=== PATIENT | male | born 1970 | race African-American/Black ===

== ENCOUNTER 2016-08-11 09:32 | Emergency (ER) | payer MEDICARE, MEDICAID ==
[~2016-08-11] VITALS: Ht 188 cm; Wt 78.0 kg
[~2016-08-11 09:32] MED LIST: BACTRIM DS TAB1 EAC1 ORAL; CIPRO500 MG PO; FAMOTIDINE20 MG ORAL; HYDROCODON-ACE1 EA15 ORAL; HYDROCORTISONE-30 GM TOPIC; LEVAQUIN500 MG ORAL; MEDROL DOSEPAK4 MG ORAL; METRONIDAZOLE500 MG ORAL; NEXIUM20 MG ORAL; NITROSTAT0.4 M2 SL; NORCO1 E1 ORAL; PROAIR HFA8.5 GM INH; RANITIDINE HCL150 MG ORAL; SOMA350 MG PO; XANAX2 MG ORAL
[2016-08-11 09:52] VITALS: BP 144/81
[2016-08-11] MEDS ORDERED: PredniSONE 20mg tab ORAL ONE (10:00)
[2016-08-11] MEDS ORDERED: RANITIDINE HCL150 MG ORAL (10:03)
[2016-08-11] MEDS ORDERED: DIPHENHYDRAMINE25 M1 ORAL (10:03)
[2016-08-11] MEDS ORDERED: PREDNISONE20 MG ORAL (10:03)
[2016-08-11 10:10] VITALS: BP 144/81
--- NOTE | 2016-08-12 07:41 | Emergency Room Report ---
History of Present Illness General Chief Complaint: Skin Rash/Abscess Source: Patient Present Illness HPI 45-year-old male presents ED complaining of rash. States symptoms started last night. Notes rash to legs, abdomen and arms. itchy in nature. Patient denies any known food allergies, states he is allergic to penicillin. Denies any fevers chills. Denies sick contacts or recent travel. Denies any new soaps or detergent. No other aggravating or relieving factors. Denies any other associated symptoms Allergies: Coded Allergies: PENICILLINS (Unverified Allergy, Unknown, 01/01/14) Patient History Past Medical History: HTN, asthma Past Surgical History: other - pancreatitis Pertinent Family History: none Social History: Denies: alcohol use, drug use, smoking Immunizations: UTD Reviewed Nursing Documentation: PMH: Agreed, PSxH: Agreed Nursing Documentation-PMH Past Medical History: No History, Except For Hx Cardiac Problems: Yes - blocked artery Hx Hypertension: Yes Hx Asthma: Yes Hx Cancer: No Hx Gastrointestinal Problems: Yes - pancreatitis/surgery 1999 Hx Neurological Problems: No Review of Systems All Other Systems: negative except mentioned in HPI Physical Exam Vital Signs Date Time Temp Pulse Resp B/P Pulse Ox O2 Delivery O2 Flow Rate FiO2 08/11/16 09:46 98.1 98 18 144/81 99 Room Air Sp02 EP Interpretation: reviewed, normal General Appearance: no apparent distress, alert, GCS 15, non-toxic Head: normocephalic Eyes: bilateral eye PERRL, bilateral eye normal inspection ENT: normal ENT inspection Neck: normal inspection Respiratory: normal inspection Cardiovascular #1: normal inspection Gastrointestinal: normal inspection Rectal: deferred Genitourinary: no CVA tenderness Musculoskeletal: normal inspection Neurologic: alert, oriented x3, responsive, motor strength/tone normal, sensory intact, speech normal Psychiatric: normal inspection Skin: rash - urticarial rash noted to legs, trunk, arms Lymphatic: normal inspection Medical Decision Making Diagnostic Impression: Primary Impression: Rash and other nonspecific skin eruption ER Course Hospital Course 45-year-old male presents to ED with rash Differential diagnoses include: allergic reaction, cellulitis, dermatitis Clinical course Patient placed on stretcher. potline monitor. After initial history, physical exam reveals a middle-age male in no acute distress. There is urticarial rash noted to the arms, legs, abdomen. blanching. Nonerythematous base. I ordered prednisone, zantac, benedryl i. I feel this is a highly complex case requiring extensive working including EKG/Rhythm strip, Xray/CT/US, Blood/urine lab work, repeat exams while in ED, and administration of strong opiates/narcotics for pain control, admission to hospital or close patient follow up. Diagnosis - rash Stable and discharged to home with prescriptions for Zantac, prednisone, Benadryl. Followup with PMD. Return to ED if symptoms recur or worsen Last Vital Signs Date Time Temp Pulse Resp B/P Pulse Ox O2 Delivery O2 Flow Rate FiO2 08/11/16 10:10 98.1 98 18 144/81 99 Room Air Status: improved Disposition: HOME, SELF-CARE Condition: Stable Scripts Ranitidine Hcl* (ZANTAC*) 150 Mg Tablet 150 MG ORAL TWICE A DAY, #30 TAB Prov: MOHIT ROSS M.D. 08/11/16 Diphenhydramine Hcl* (DIPHENHYDRAMINE HCL*) 25 Mg Capsule 25 MG ORAL Q6H Y for Itching, #30 CAP 0 Refills Prov: MOHIT ROSS M.D. 08/11/16 Prednisone* (PREDNISONE*) 20 Mg Tablet 40 MG ORAL DAILY, #10 TAB Prov: MOHIT ROSS M.D. 08/11/16 Referrals: [employer] [facility],REFERRIN (PCP) Patient Instructions: MOHIT Toledo M.D. Aug 12, 2016 07:41
== END 2016-08-11 10:10 | disposition home or self-care (01) ==
LOC: EMR 09:56
DX: R21 Rash and other nonspecific skin eruption (principal); J45.909 Unspecified asthma, uncomplicated; I10 Essential (primary) hypertension; Z88.0 Allergy status to penicillin
CPT/HCPCS: 99284

== ENCOUNTER 2018-06-23 10:40 | Emergency (ER) | payer MEDICAID ==
[~2018-06-23] VITALS: Ht 188 cm; Wt 81.6 kg
[~2018-06-23 10:40] MED LIST changes: +DIPHENHYDRAMINE25 M1 ORAL; +PREDNISONE20 MG ORAL
--- NOTE | 2018-06-23 10:49 | NUR ---
ED Nurse Note: Pt is not in the waiting room at this time.
[2018-06-23] MEDS ORDERED: QUETIAPINE FUM200 MG ORAL (11:00)
[2018-06-23] MEDS ORDERED: Dicyclomine HCl 10mg/5ml oral soln ORAL ONE (11:15)
[2018-06-23 11:21] LABS: BILIRUBIN, URINE NEGATIVE (NEGATIVE); GLUCOSE, URINE (UA) NEGATIVE (NEGATIVE); KETONES,URINE 4+ (NEGATIVE); LEUKOCYTE ESTERASE ,URINE 1+ (NEGATIVE); NITRITE,URINE NEGATIVE (NEGATIVE); PH,URINE 6 (4.5-8.0); PROTEIN,URINE 1+ (NEGATIVE); UROBILINOGEN,URINE 1 MG/DL (0.0-1.0)
[2018-06-23 11:23] VITALS: BP 156/87
[2018-06-23 11:23] LABS: APPEARANCE,URINE SLIGHTLY CLOUDY; COLOR,URINE YELLOW
--- NOTE | 2018-06-23 11:30 | NUR ---
ED Nurse Note:blood and urine sent to labs, pt. received IV meds and fluids
[2018-06-23 11:46] LABS: BASOPHILS % (AUTO) 1.5 % (0.0-2.0); EOSINOPHILS % (AUTO) 0.1 % (0.0-3.0); HEMATOCRIT 45.1 % (42.0-52.0); HEMOGLOBIN 15.8 G/DL (14.2-18.0); LYMPHOCYTES % (AUTO) 17.6 % (20.0-45.0); MEAN CORPUSCULAR VOLUME 99 FL (80-99); MONOCYTES % (AUTO) 5.3 % (1.0-10.0); NEUTROPHILS % (AUTO) 75.5 % (45.0-75.0); PLATELET COUNT 307 K/UL (150-450); RED BLOOD COUNT 4.57 M/UL (4.70-6.10); RED CELL DISTRIBUTION WIDTH 11.9 % (11.6-14.8); WHITE BLOOD COUNT 8.8 K/UL (4.8-10.8)
[2018-06-23 11:58] LABS: ANION GAP 9 mmol/L (5-15); BLOOD UREA NITROGEN 10 mg/dL (7-18); CALCIUM 8.7 MG/DL (8.5-10.1); CARBON DIOXIDE 29 MMOL/L (21-32); CHLORIDE 103 MMOL/L (98-107); CREATININE 1.1 MG/DL (0.55-1.30); POTASSIUM 4.1 MMOL/L (3.5-5.1); SODIUM 140 MMOL/L (136-145)
[2018-06-23 12:02] LABS: ALANINE AMINOTRANSFERASE 30 U/L (12-78); ALBUMIN 4.1 G/DL (3.4-5.0); ALBUMIN/GLOBULIN RATIO 1.2 (1.0-2.7); ALKALINE PHOSPHATASE 86 U/L (46-116); ASPARTATE AMINO TRANSFERASE 25 U/L (15-37); BILIRUBIN,TOTAL 0.5 MG/DL (0.2-1.0)
--- NOTE | 2018-06-23 12:14 | Diagnostic Imaging Report ---
Indication: Abdominal pain Technique: Continuous helical transaxial imaging of the abdomen and pelvis was obtained from the lung bases to the pubic symphysis. No intravenous contrast was administered. Coronal 2-D reformats were also obtained. Automatic Exposure Control was utilized. Total Dose length Product (DLP): 649.[address] Dose Index Volume (CTDIvol): 12.54 mGy Comparison: 07/13/[address] abdomen pelvis Findings: No nephrolithiasis or hydronephrosis demonstrated. The appendix is normal. No free fluid identified. Few diverticula noted within the colon. There is no evidence of bowel obstruction. Mural arterial calcifications are present. Cholecystectomy noted. Lung bases appear clear. IMPRESSION: No acute findings. Atherosclerotic vascular disease Normal appendix Status post cholecystectomy Diverticulosis of the colon. The CT scanner at [facility] is accredited by the [employer] and the scans are performed using dose optimization techniques as appropriate to a performed exam including Automatic Exposure control.
--- NOTE | 2018-06-23 12:51 | Emergency Room Report ---
History of Present Illness General Chief Complaint: Abdominal Pain Source: Patient Present Illness HPI 47-year-old male with a history of remote cholecystectomy, hypertension, tobacco use presents with umbilical abdominal pain for many weeks, he reports he went to an outside hospital and he was told he had a hernia, he does report some diarrhea but no recent antibiotic use no vomiting, no chest pain, no nausea no fevers, no rectal bleeding or melanotic stools. Patient her symptoms , which is concerned that maybe he has a hernia. Allergies: Coded Allergies: PENICILLINS (Unverified Allergy, Unknown, 01/01/14) Patient History Past Medical History: see triage record Reviewed Nursing Documentation: PMH: Agreed; PSxH: Agreed Nursing Documentation-PMH Past Medical History: No History, Except For Hx Cardiac Problems: Yes - blocked artery Hx Hypertension: Yes Hx Asthma: Yes Hx Cancer: No Hx Gastrointestinal Problems: Yes - pancreatitis/surgery 1999 Hx Neurological Problems: No Review of Systems All Other Systems: negative except mentioned in HPI Physical Exam Vital Signs Date Time Temp Pulse Resp B/P (MAP) Pulse Ox O2 Delivery O2 Flow Rate FiO2 06/23/18 10:55 98.6 98 18 161/92 99 Room Air Sp02 EP Interpretation: reviewed, normal General Appearance: no apparent distress, alert, non-toxic Head: normocephalic Eyes: bilateral eye normal inspection, bilateral eye PERRL, bilateral eye EOMI ENT: normal ENT inspection, hearing grossly normal, normal pharynx, no angioedema, normal voice, moist mucus membranes Neck: normal inspection, full range of motion, supple, supple/symm/no masses Respiratory: chest non-tender, lungs clear, normal breath sounds, chest symmetrical, palpation of chest normal Cardiovascular #1: normal peripheral pulses, regular rate, rhythm Cardiovascular #2: 2+ radial (R), 2+ radial (L) Gastrointestinal: normal inspection, non tender, soft, no mass, non-distended, no guarding, no rebound Rectal: deferred Genitourinary: normal inspection, no CVA tenderness Musculoskeletal: back normal, gait/station normal, normal range of motion, non- tender, no calf tenderness Neurologic: alert, responsive, closing coordinator III-XII nml as tested, motor strength/tone normal, sensory intact, speech normal Psychiatric: judgement/insight normal, memory normal, mood/affect normal, no suicidal/homicidal ideation Skin: normal color, no rash, warm/dry, normal turgor Lymphatic: no adenopathy Medical Decision Making Diagnostic Impression: Primary Impression: Abdominal pain ER Course Patient with no obvious hernia, did report some diarrhea prior to arrival for the last few days off and on, recommended [id number] anti-diarrheal medication as well as Bentyl and Pepcid, suspect possible gastritis, no other serious etiology suspected, patient not been on recent antibiotics, is not having active for persistent diarrhea here, CT scan unremarkable as well, no palpable umbilical or other ventral hernia notable, we'll discharge, patient given 1 L of normal saline, urinalysis did reveal evidence of mild dehydration, but patient clinically very well-appearing. Last Vital Signs Date Time Temp Pulse Resp B/P (MAP) Pulse Ox O2 Delivery O2 Flow Rate FiO2 06/23/18 11:23 98.6 73 18 156/87 99 Room Air Disposition: HOME, SELF-CARE Condition: Stable Referrals: NON PHYSICIAN (PCP) ROCIO TOMLINSON M.D Jun 23, 2018 12:51
[2018-06-23] MEDS ORDERED: PEPCID AC20 M2 PO (12:53)
[2018-06-23] MEDS ORDERED: DICYCLOMINE HCL10 MG PO (12:53)
[2018-06-23 12:55] VITALS: BP 132/75
--- NOTE | 2018-06-23 12:55 | NUR ---
ED Nurse Note: Patient is medically ceared to leave the ED. Patient is alert and oriented x4, ambulatory with a steady gait, VSS, patient acknowledges the need to follow up with PMD within a week if symptoms dont improve, prescriptions given to patient, all belongings sent home. ID band and IV line removed.
== END 2018-06-23 12:55 | disposition home or self-care (01) ==
LOC: EMR 11:36
DX: R10.9 Unspecified abdominal pain (principal); R19.7 Diarrhea, unspecified; I10 Essential (primary) hypertension; J45.909 Unspecified asthma, uncomplicated; Z88.0 Allergy status to penicillin; Z90.49 Acquired absence of other specified parts of digestive tract
CPT/HCPCS: 36415; 74176; 80053; 81003; 83690; 85025; 96361; 96374; 99284; J2405

== ENCOUNTER 2019-03-03 12:38 | Emergency (ER) | payer MEDICARE, MEDICAID ==
[~2019-03-03] VITALS: Ht 188 cm; Wt 79.8 kg
[~2019-03-03 12:38] MED LIST changes: +DICYCLOMINE HCL10 MG PO; +PEPCID AC20 M2 PO; +QUETIAPINE FUM200 MG ORAL
--- NOTE | 2019-03-03 12:50 | NUR ---
ED Nurse Note: PT WALKED IN TO ER TODAY FROM HOME. AOX4. PT C/O ANTERIOR, LEFT-SIDED HEADACHE X 1 WEEK AGO. PT DENIES NAUSEA, VOMITING OR DIZZINESS. GAIT STEADY. PT STATES HE TOOK ALEVE AT HOME LAST NIGHT BUT WITHOUT RELIEF.
[2019-03-03 12:52] VITALS: BP 136/84
[2019-03-03] MEDS ORDERED: Tylenol #3 tab (300mg/30mg) ORAL ONE (13:00)
--- NOTE | 2019-03-03 13:07 | NUR ---
ED Nurse Note: PT REFUSED BLOOD DRAW, MEDICATIONS, AND FLUIDS. PT STATES, "I DON'T NEED ALL THAT. I JUST WANT MY HEAD SCAN." CLIFF SMITH NOTIFIED.
--- NOTE | 2019-03-03 13:13 | NUR ---
ED Nurse Note: PT TO CT VIA WHEELCHAIR.
--- NOTE | 2019-03-03 13:27 | NUR ---
ED Nurse Note: PT BACK FROM CT VIA SOM.
--- NOTE | 2019-03-03 15:57 | NUR ---
ED Nurse Note: PT YELLING, "I'VE BEEN WAITING FOREVER AND YOU GUYS HAVEN'T DONE A FUCKING THING. I'VE BEEN HERE FOR 5 HOURS AND Y'ALL AIN'T DO SHIT!" MULTIPLE ATTEMPTS MADE TO EXPLAIN TO PT THAT WE ARE STILL AWATING RESULTS OF HEAD CT AND THAT WE HAVE NO CONTROL OVER HOW QUICKLY THE REPORT IS GENERATED. PT IN [place]AY CONTINUALLY CURSING IN ANGER, "JWUAN GET THE FUCK OUT THIS [facility] AND GO TO [facility] OR [facility]!" ATTEMPTS MADE AGAIN BY MULTIPLE STAFF TO CALM PT BUT PT STATES, "JUWAN GET THE FUCK OUT THIS STUPID PLACE!" PA AND RN AT BEDSIDE EXPLAINING RISKS AND CONSEQUENCES OF LEAVING THE HOSPITAL AT THIS TIME AND THE BENEFITS OF CONTINUED TREATMENT AND HOSPITALIZATION. PT REFUSES TO WAIT ANY LONGER. PT SIGNED AMA FORM WITNESSED BY PRIMARY RN AND WALKED OUT OF ER WITH STEADY GAIT AND ALL BELONGINGS ACCOMPANIED BY FRIEND.
--- NOTE | 2019-03-03 15:58 | NUR ---
Note sharon in EDM - 03/03/19 at 1603 by [facility] ED Nurse Note: PT YELLING, "I'VE BEEN WAITING FOREVER AND YOU GUYS HAVEN'T DONE A FUCKING THING. I'VE BEEN HERE FOR 5 HOURS AND Y'ALL AIN'T DO SHIT!" MULTIPLE ATTEMPTS MADE TO EXPLAIN TO PT THAT WE ARE STILL AWATING RESULTS OF HEAD CT AND THAT WE HAVE NO CONTROL OVER HOW QUICKLY THE REPORT IS GENERATED. PT IN [facility] CONTINUALLY CURSING IN ANGER, "JUWAN GET THE FUCK OUT THIS [facility] AND GO TO [facility] OR [facility]!" ATTEMPTS MADE AGAIN BY MULTIPLE STAFF TO CALM PT BUT PT STATES, "JUWAN GET THE FUCK OUT THIS STUPID PLACE!" PT SIGNED AMA AND WALKED OUT OF ER WITH STEADY GAIT AND ALL BELONGINGS ACCOMPANIED BY FRIEND.
--- NOTE | 2019-03-03 16:00 | Diagnostic Imaging Report ---
Indications: Severe headache Technique: Spiral acquisitions obtained through the brain. Angled axial and coronal 5 x 5 mm slices were reconstructed. Total dose length product 1073 mGycm. CTDI vol(s) 49 mGy. Dose reduction achieved using automated exposure control Comparison: None. Findings: Bone window images are limited by unusual stairstep artifact near the vertex No acute intracranial hemorrhage or edema. No mass effect or midline shift. Normal gomez-white differentiation. Normal size ventricles and extra axial CSF spaces. Visualized orbits and sinuses are unremarkable. The mastoids are grossly clear. Impression: Negative for acute intracranial bleed or mass effect The CT scanner at [facility] is accredited by the [employer] and the scans are performed using protocols designed to limit radiation exposure to as low as reasonably achievable to attain images of sufficient resolution adequate for diagnostic evaluation.
--- NOTE | 2019-03-03 16:04 | Emergency Room Report ---
History of Present Illness General Chief Complaint: Headache Source: Patient Present Illness HPI 48-year-old male with history of schizophrenia currently taking Seroquel and clonazepam here complaining of 1 week of unilateral headache on the left side. Patient denies any fall or injury. Denies photophobia blurry vision. Complains of nausea however has not vomited. Denies being diagnosed with migraine headaches in the past. Denies chest pain, shortness of breath, palpitation, abdominal pain. Patient reports that 1 of his heart valves is not closing enough and that has given him an unknown diagnosis from cardiac origin which is he is currently under the care of a rn liaison. Denies slurred speech, unilateral and generalized weakness. Has taken Tylenol and Aleve with minimal relief for headache patient also is taking Hooper for back pain. Denies drug use and alcohol intake. Patient is a tobacco smoker. Allergies: Coded Allergies: PENICILLINS (Unverified Allergy, Unknown, 01/01/14) Patient History Past Medical History: see triage record Past Surgical History: unable to obtain Pertinent Family History: none Social History: Reports: smoking Immunizations: UTD Reviewed Nursing Documentation: PMH: Agreed; PSxH: Agreed Nursing Documentation-PMH Past Medical History: No History, Except For Hx Cardiac Problems: Yes - blocked artery Hx Hypertension: Yes Hx Asthma: Yes Hx Cancer: No Hx Gastrointestinal Problems: Yes - pancreatitis/surgery 1999 Hx Neurological Problems: No Review of Systems All Other Systems: negative except mentioned in HPI Physical Exam Vital Signs Date Time Temp Pulse Resp B/P (MAP) Pulse Ox O2 Delivery O2 Flow Rate FiO2 03/03/19 12:41 98.2 93 18 144/87 (106) 98 Room Air Sp02 EP Interpretation: reviewed, normal General Appearance: no apparent distress, alert, GCS 15, non-toxic Head: normocephalic, atraumatic Eyes: bilateral eye normal inspection, bilateral eye PERRL ENT: hearing grossly normal, normal pharynx, no angioedema, normal voice Neck: full range of motion, supple, supple/symm/no masses Respiratory: chest non-tender, lungs clear, normal breath sounds, no rhonchi, no wheezing, speaking full sentences Cardiovascular #1: regular rate, rhythm, no edema, no murmur, normal capillary refill Cardiovascular #2: 2+ dorsalis pedis (R), 2+ dorsalis pedis (L) Gastrointestinal: normal inspection, non tender, soft, no mass Genitourinary: normal inspection, no CVA tenderness Musculoskeletal: back normal, gait/station normal, normal range of motion, non- tender, no calf tenderness Neurologic: alert, oriented x3, responsive, motor strength/tone normal, sensory intact, speech normal Psychiatric: judgement/insight normal, memory normal, mood/affect normal, no suicidal/homicidal ideation Skin: no rash Lymphatic: normal inspection, no adenopathy Medical Decision Making PA Attestation All my diagnosis and treatment plans were reviewed ad discussed with my supervising physician Dr. Dinero Diagnostic Impression: Primary Impression: Cluster headache ER Course 48-year-old male with history of schizophrenia currently taking Seroquel and clonazepam here complaining of 1 week of unilateral headache on the left side. Patient denies any fall or injury. Denies photophobia blurry vision. Complains of nausea however has not vomited. Denies being diagnosed with migraine headaches in the past. Denies chest pain, shortness of breath, palpitation, abdominal pain. Patient reports that 1 of his heart valves is not closing enough and that has given him an unknown diagnosis from cardiac origin which is he is currently under the care of a rn liaison. Denies slurred speech, unilateral and generalized weakness. Has taken Tylenol and Aleve with minimal relief for headache patient also is taking Hooper for back pain. Denies drug use and alcohol intake. Patient is a tobacco smoker. Ddx considered but are not limited to: cerebral hematoma, concussion, skull fracture, head contusion, cluster headache, migraine headache, tension headache Vital signs: are WNL, pt. is afebrile H&PE are most consistent with: Cluster headache ORDERS: head CT no contrast patient refused blood work and IV administration of medication, Tylenol p.o. ED INTERVENTIONS: Tylenol p.o. DISCHARGE: At this time pt. is stable for d/c to home. Will provide printed patient care instructions, and any necessary prescriptions. Care plan and follow up instructions have been discussed with the patient prior to discharge. Patient left AGAINST MEDICAL ADVICE however was stable at time of discharge as the radiologist report took 3 hours to be ready patient understands the risks and benefits of leaving the hospital without results he did not take prescriptions with him. CT/MRI/US Diagnostic Results CT/MRI/US Diagnostic Results : Imaging Test Ordered: Head CT no contrast Impression Within normal limits, no intracranial bleed Last Vital Signs Date Time Temp Pulse Resp B/P (MAP) Pulse Ox O2 Delivery O2 Flow Rate FiO2 03/03/19 12:52 98.4 86 17 136/84 99 Room Air Disposition: AGAINST MEDICAL ADVICE Condition: Stable Scripts Ondansetron (Zofran) 4 Mg Tablet 4 MG ORAL Q6H PRN for Nausea & Vomiting, #10 TAB Prov: Sabrina Tidwell 03/03/19 Ibuprofen (Ibu) 800 Mg Tablet 800 MG PO TID, #30 TAB Prov: Sabrina Tidwell 03/03/19 Referrals: NOT CHOSEN IPA/MD,REFERRING (PCP) Patient Instructions: Cluster Headache Additional Instructions: Take medication as directed follow-up with your primary care provider if your headache continues at this time no intracranial bleed is noted. Also referral to neurologist as needed by your primary care physician for possible migraine headache. Sabrina Tidwell Mar 03, 2019 16:04
[2019-03-03] MEDS ORDERED: ZOFRAN4 M1 ORAL (16:05)
[2019-03-03] MEDS ORDERED: IBU800 MG PO (16:05)
== END 2019-03-03 15:57 | disposition left against medical advice (07) ==
LOC: EMR 13:04
DX: G44.009 Cluster headache syndrome, unspecified, not intractable (principal); J45.909 Unspecified asthma, uncomplicated; I10 Essential (primary) hypertension; F17.200 Nicotine dependence, unspecified, uncomplicated; Z88.0 Allergy status to penicillin
CPT/HCPCS: 70450; 99284